=== PATIENT | female | born 1945 | race Caucasian/White ===

== ENCOUNTER 2023-09-30 13:50 | Emergency (ER) | payer MEDICARE, OTHER | END 2023-09-30 15:31 | disposition home or self-care (01) | LOC: BURERS 13:50 | DX: S69.92XA Unspecified injury of left wrist, hand and finger(s), initial encounter (principal); L03.90 Cellulitis, unspecified; I10 Essential (primary) hypertension; W18.30XA Fall on same level, unspecified, initial encounter | CPT/HCPCS: 29125; 99282 ==